=== PATIENT | male | born 1995 | race Hispanic/Latino ===

== ENCOUNTER 2018-03-08 20:07 | Inpatient (IN) | payer MEDICAID ==
--- NOTE | 2018-03-08 20:28 | C.PDOC ---
History Of Present Illness Patient transferred from [facility] for detox, accepted by Dr. Villanueva. States that he drinks 1.5L liquor per day, last drink yesterday. Also uses heroin, last use two days ago. Denies other illicit drug use. Denies SI/HI. Denies auditory or visual hallucinations. Time Seen by Provider: 03/08/18 20:16 Chief Complaint (Nursing): Medical Clearance Past Medical History Vital Signs: Last Vital Signs Temp 98.8 F 03/08/18 20:18 Pulse 101 H 03/08/18 20:12 Resp 20 03/08/18 20:12 BP 113/68 03/08/18 20:12 Pulse Ox 99 03/08/18 20:12 - Medical History PMH: No Chronic Diseases Family History: States: No Known Family Hx - Social History Hx Alcohol Use: Yes Hx Substance Use: Yes - Immunization History Hx Tetanus Toxoid Vaccination: Yes Hx Influenza Vaccination: No Hx Pneumococcal Vaccination: No Review Of Systems Except As Marked, All Systems Reviewed And Found Negative. Eyes: Negative for: Vision Change Cardiovascular: Negative for: Chest Pain, Palpitations Respiratory: Negative for: Shortness of Breath Gastrointestinal: Negative for: Nausea, Vomiting Neurological: Negative for: Confusion, Altered Mental Status Psych: Negative for: Suicidal ideation Physical Exam - Physical Exam Appears: Non-toxic Skin: Normal Color, Diaphoretic (mild) Head: Atraumatic Eye(s): bilateral: Normal Inspection Tongue: Normal Appearing Lips: Normal Appearing Chest: Symmetrical Cardiovascular: Rhythm Regular (tachycardic) Respiratory: Normal Breath Sounds Gastrointestinal/Abdominal: Normal Exam Extremity: Other (hand tremors) Neurological/Psych: Oriented x3, Normal Speech, Normal Motor, Normal Sensation Gait: Steady ED Course And Treatment O2 Sat by Pulse Oximetry: 99 Medical Decision Making Medical Decision Making: Patient admitted to Dr. Villanueva for detox Disposition - Disposition Disposition: HOSPITALIZED Disposition Time: 20:29 Condition: GOOD - Clinical Impression Clinical Impression: Alcohol abuse
--- NOTE | 2018-03-08 20:43 | PCM.BM ---
<Raul Angulo - Last Filed: 03/08/18 20:42> Treatment Plan Problems - Problems identified on initial assessmt potential for alcohol withdrawal Date Initiated: 03/08/18 Time Initiated: 20:42 Status: Active Treatment assets and liabiliti Patient Assests: ADL independent Patient Liabilities: substance abuse - Milieu Protocol Maintain good personal hygiene: daily Encourage regular showers, daily Remind patient to perform daily oral care, daily Assist patient to perform ADL's Conduct patient checks and document Observation sheet: Q15 minutes Maintain personal safety: every shift Educate patient to report safety concerns to staff, every shift Monitor environment for contraband/sharps Medication safety: Monitor for expected outcome, potential side effects: every shift, Assess barriers to learning: every shift, Assess readiness for medication education: every shift <Tiffanie Villanueva - Last Filed: 03/09/18 14:34> - Diagnosis (1) Opioid use disorder, severe, dependence Status: Acute Interventions: 03/09/18 14:33 * Assess 7x/week regarding severity of withdrawal * Educate regarding risks, benefits, side effects and alternatives of medica tions * Use Motivational Interviewing for abstinence * Use CBT for relapse prevention * Medication management for withdrawal symptoms * Encourage medication assisted treatment * (2) Alcohol use disorder, severe, dependence Status: Acute Interventions: 03/09/18 14:33 * Assess 7x/week regarding severity of withdrawal * Educate regarding risks, benefits, side effects and alternatives of medications * Use Motivational Interviewing for abstinence * Use CBT for relapse prevention * Medication management for withdrawal symptoms * Encourage medication assisted treatment *
--- NOTE | 2018-03-09 12:09 | PCM.PSYCH ---
Initial Psychiatric Evaluation - Initial Psychiatric Evaluation Type of Admission: Voluntary Legal Status: Capacity Chief Complaint (in patient's own words): "I need help!" History of Present Illness and Precipitating Events: He is seen, chart reviewed, and case discussed. He is a 23 year old male who is single with no children. He is currently homeless and used to work in [employer]. He is recently released from half-way as of last month. He is cooperative and visibly withdrawing. He began drinking alcohol at 13 years old but it became regular at 14 years old. He drinks 1 1/2 liter of vodka a day and last drank 2 days ago. He has had one seizure related to alcohol. He also uses opiates and began using at 16 years old. His opioid use has been regular ever since and snorts about a bundle a day. His opiates of choice are heroin, fentanyl and carfentanyl. He last used a bundle 2 days ago. He also takes Xanax but it is not daily. He smokes 1 pack of cigarettes a day. He has undergone detoxification once before at [facility] and has never been to a rehabilitation center. He has been hospitalized due to depression 3 times in the past. He is willing to enter a program after this detoxification. Pt denies suicidal or homicidal ideations. Pt has poor sleep, energy, appetite. Pt denies paranoia or auditory/visual halluc. Pt is tremulous, sweaty, nauseous, and anxious. Past Medical History: Denies Family History: Mother with depressive d/o, anxiety d/o and bipolar d/o unspecified Psychiatric History: Depressive d/o, anxiety d/o, bipolar d/o perhaps but he is not sure Surgical History: Left knee surgery Current Medications: Active Medications Generic Name Dose Route Start Last Admin Trade Name Freq PRN Reason Stop Dose Admin Chlordiazepoxide 25 mg 03/09/18 05:59 Librium PO Q4H PRN Alcohol Withdrawal Chlordiazepoxide 25 mg 03/09/18 06:00 03/09/18 11:37 Librium PO 03/13/18 05:59 25 mg Q6 VIRGILIO Administration Taper Clonidine HCl 0.1 mg 03/09/18 00:20 Catapres PO Q6 PRN withdrawal symptoms Gabapentin 300 mg 03/09/18 10:30 03/09/18 10:32 Neurontin PO 300 mg TID VIRGILIO Administration Hydroxyzine HCl 25 mg 03/09/18 00:21 Atarax PO Q6 PRN Anxiety Methadone HCl 25 mg 03/09/18 10:30 03/09/18 10:32 Methadone PO 03/15/18 10:29 25 mg Q24H VIRGILIO Administration Taper Nicotine 1 patch 03/09/18 11:30 03/09/18 11:37 Nicoderm Cq TD 1 patch DAILY VIRGILIO Administration Trazodone HCl 50 mg 03/09/18 00:22 Desyrel PO HS PRN Insomnia Past Psychiatric History - Past Psychiatric History Previous Treatment History: Intensive Outpatient Pertinent Medical Hx (Current Medical&Sleep Prob, Allergies): Allergies Allergy/AdvReac Type Severity Reaction Status Date / Time No Known Allergies Allergy Verified 03/08/18 20:17 No Known Home Med 03/08/18 Review of Systems - Psychiatric Psychiatric: Abnormal Sleep Pattern, Anhedonia, Anxiety, Behavioral Changes, Change in Appetite, Depression, Difficulty Concentrating, Irritability. absent: Hallucinations, Homicidal Ideation, Paranoia, Suicidal Ideation Mental Status Examination - Personal Presentation Personal Presentation: Looks stated age - Affect Affect: Constricted - Motor Activity Motor Activity: Calm - Reliability in Providing Information Reliability in Providing Information: Good - Speech Speech: Organized - Mood Mood: Depressed, Anxious - Formal Thought Process Formal Thought Process: No Impairment - Cognitive Functions Orientation: Person, Place, Situation, Time Sensorium: Alert Attention/Concentration: Easily distracted Estimate of Intelligence: Average Judgement: Intact, as evidence by: Insight regarding need for hospitalization Memory: Recent intact, as evidence by: Ability to recall events of the day, Remote intact, as evidenced by: Abilit to recall sig. 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 Attend groups and activities Supportive therapy and psychoeducation [place] for abstinence CBT for relapse prevention Encourage MAT Refer to rehab or IOP, and self-help groups Teach healthy lifestyle methods, i.e. diet, exercise, meditation Smoking cessation with [place] Nicotine patch if needed Repeat labs re liver, pancrease Protonix for stomach acid 34 min Projected ELOS: 5 days Prognosis: good w treatment - Smoking Cessation Smoking Cessation Initiated: Yes
[2018-03-09] MEDS: Pantoprazole 20 mg EC Tab PO SCH (14:57)
[2018-03-10 08:35] LABS: BASO # 0.1 K/uL (0.0-0.2); BASO % 0.7 % (0.0-2.0); EOS # 0.1 K/uL (0.0-0.7); EOS % 1.3 % (0.0-4.0); HEMOGLOBIN 12.6 g/dL (12.0-18.0); LYMPH # 2.3 K/uL (1.0-4.3); LYMPH % 28.3 % (20.0-40.0); MEAN CELL VOLUME 85.1 fL (80.0-94.0); MEAN CORPUSCULAR HEMOGLOBIN 28.1 pg (27.0-31.0); MONO # 0.7 K/uL (0.0-0.8); MONO % 8.5 % (0.0-10.0); NEUT # 4.9 K/uL (1.8-7.0); NEUT % 61.2 % (50.0-75.0); NRBC % 0.1 % (0.0-2.0); RBC 4.48 Mil/uL (4.40-5.90)
[2018-03-10 08:53] LABS: ALB/GLOB RATIO 1.3 (1.0-2.1); ALBUMIN 4.4 g/dL (3.5-5.0); ALT/SGPT 37 U/L (21-72); AMYLASE 162 U/L (30-110); AST/SGOT 27 U/L (17-59); BLOOD UREA NITROGEN 18 mg/dL (9-20); CALCIUM 9.3 mg/dl (8.6-10.4); GFR NON-AFRICAN AMERICAN > 60; LIPASE 454 U/L (23-300)
[2018-03-10] MEDS: Pantoprazole 20 mg EC Tab PO SCH (09:18)
[2018-03-10] MEDS ORDERED: Pantoprazole 20 mg EC Tab PO ONE (12:00)
--- NOTE | 2018-03-10 12:04 | PCM.PYCHPN ---
Psychiatric Progress Note - Psychiatric Progress Note Patient seen today, length of contact: 16 min Patient Chief Complaint: "I am still withdrawing" Problems Identified/Issues Discussed: The pt is seen, chart reviewed, case discussed with staff. The pt is compliant with medications and reports no side-effects. Symptoms are improving but needs more time to stabilize. Pt attends groups and activities. Support given, psycho-education provided. After care discussed. Medication Change: Yes (detox changes daily) Medical Record Reviewed: Yes Mental Status Examination - Cognitive Function Orientation: Person, Place, Situation, Time Memory: Intact Attention: WNL Concentration: Poor Association: WNL Fund of Knowledge: WNL - Mood Mood: Depressed, Anxious - Affect Affect: Constricted - Speech Speech: Appropriate - Formal Thought Process Formal Thought Process: No Impairment - Suicidal Ideation Suicidal Ideation: No - Homicidal Ideation Homicidal Ideation: No Goal/Treatment Plan - Goal/Treatment Plan Need for Continued Stay: Discharge may exacerbated symptoms, Severe functional impairment Progress Toward Problem(s) and Goals/Treatment Plan: Taper with methadone Gabapentin for augmentation Remeron for insomnia ad depression As needed medications All risks, benefits and alternatives of the meds discussed, and the pt agreed and understood. Attend groups and activities Supportive therapy and psychoeducation [place] for abstinence CBT for relapse prevention Encourage MAT Refer to rehab or IOP, and self-help groups Teach healthy lifestyle methods, i.e. diet, exercise, meditation Smoking cessation with [place] Nicotine patch if needed Repeat labs re liver, pancrease again Restricting diet discussed Protonix for stomach acid Estimated Date of D/C: 03/14/18
[2018-03-11] MEDS: Pantoprazole 40 mg EC Tab PO SCH (09:41)
[2018-03-11 11:57] LABS: AMYLASE 120 U/L (30-110); LIPASE 193 U/L (23-300)
[2018-03-11] MEDS: Bacitracin 500 Units/gm Oint Foilpak UD TOP SCH ×2 (13:32→17:10)
--- NOTE | 2018-03-11 15:35 | PCM.PYCHPN ---
Psychiatric Progress Note - Psychiatric Progress Note Patient seen today, length of contact: 17 min Patient Chief Complaint: "I am tremulous" Problems Identified/Issues Discussed: The pt is seen, chart reviewed, case discussed with staff. Support given, CBT and [facility] used briefly No new symptoms reported, improving slowly and needs more time Extra meds added due to ongoing wdw sx No SEs from medications, risks discussed. After care discussed Medication Change: Yes (detox changes daily) Medical Record Reviewed: Yes Mental Status Examination - Cognitive Function Orientation: Person, Place, Situation, Time Memory: Intact Attention: WNL Concentration: Poor Association: WNL Fund of Knowledge: WNL - Mood Mood: Depressed, Anxious - Affect Affect: Constricted - Speech Speech: Appropriate - Formal Thought Process Formal Thought Process: No Impairment - Suicidal Ideation Suicidal Ideation: No - Homicidal Ideation Homicidal Ideation: No Goal/Treatment Plan - Goal/Treatment Plan Need for Continued Stay: Discharge may exacerbated symptoms, Severe functional impairment Progress Toward Problem(s) and Goals/Treatment Plan: Taper with methadone Gabapentin for augmentation Remeron for insomnia ad depression As needed medications All risks, benefits and alternatives of the meds discussed, and the pt agreed and understood. Attend groups and activities Supportive therapy and psychoeducation [place] for abstinence CBT for relapse prevention Encourage MAT Refer to rehab or IOP, and self-help groups Teach healthy lifestyle methods, i.e. diet, exercise, meditation Smoking cessation with [place] Nicotine patch if needed Repeat labs re liver, pancrease again Restricting diet discussed Protonix for stomach acid Estimated Date of D/C: 03/14/18
[2018-03-11] MEDS ORDERED: Aluminum Hydroxide/Magnesium Hydroxide Susp (30 mL) PO PRN (15:39)
[2018-03-11] MEDS: Calcium Carbonate 500 mg Chewable Antacid Tab PO SCH (17:19)
[2018-03-11 20:52] VITALS: RESP 18
[2018-03-12] MEDS: Pantoprazole 40 mg EC Tab PO SCH (09:05)
[2018-03-12] MEDS: Bacitracin 500 Units/gm Oint Foilpak UD TOP SCH ×3 (09:05→17:24)
[2018-03-12] MEDS: Calcium Carbonate 500 mg Chewable Antacid Tab PO SCH ×2 (09:06→17:25)
--- NOTE | 2018-03-12 09:56 | PCM.PYCHPN ---
Psychiatric Progress Note - Psychiatric Progress Note Patient seen today, length of contact: 17 min Patient Chief Complaint: I need an extra dose of methadone Problems Identified/Issues Discussed: Patient seen and evaluated, chart reviewed and discussed with the nurse. He reports some improvement in his mood and irritability. He still reports withdrawal symptoms including camps, joint pains and nausea. He is requesting for an extra dose of methadone. He denies any AVH or any SI/HI. Patient is compliant with medications and denies any side effects. Symptoms are improving but need more time to stabilize. Support and psychoeducation given. Medication Change: Yes (detox changes daily) Medical Record Reviewed: Yes Mental Status Examination - Cognitive Function Orientation: Person, Place, Situation, Time Memory: Intact Attention: WNL Concentration: Poor Association: WNL Fund of Knowledge: WNL - Mood Mood: Depressed, Anxious - Affect Affect: Constricted - Speech Speech: Appropriate - Formal Thought Process Formal Thought Process: No Impairment - Suicidal Ideation Suicidal Ideation: No - Homicidal Ideation Homicidal Ideation: No Goal/Treatment Plan - Goal/Treatment Plan Need for Continued Stay: Discharge may exacerbated symptoms, Severe functional impairment Progress Toward Problem(s) and Goals/Treatment Plan: Opioid withdrawal Opioid use d/o, severe Alcohol withdrawal 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 Attend groups and activities Supportive therapy and psychoeducation [place] for abstinence CBT for relapse prevention Encourage MAT Refer to rehab or IOP, and self-help groups Teach healthy lifestyle methods, i.e. diet, exercise, meditation Smoking cessation with [place] Nicotine patch if needed Repeat labs re liver, pancrease Protonix for stomach acid Estimated Date of D/C: 03/14/18
[2018-03-13] MEDS: Bacitracin 500 Units/gm Oint Foilpak UD TOP SCH ×3 (09:27→17:13)
[2018-03-13] MEDS: Pantoprazole 40 mg EC Tab PO SCH (09:39)
[2018-03-13] MEDS: Calcium Carbonate 500 mg Chewable Antacid Tab PO SCH ×2 (09:39→17:14)
--- NOTE | 2018-03-14 08:41 | PCM.PYCHDC ---
Mental Status Examination - Mental Status Examination Orientation: Person, Place, Situation, Time Memory: Intact Mood: Anxious Affect: Constricted Speech: Appropriate Attention: WNL Concentration: WNL Association: WNL Fund of Knowledge: WNL Formal Thought Process: No Impairment Suicidal Ideation: No Current Homicidal Ideation?: No Discharge Summary - Discharge Note Reason for Hospitalization: Opioid and alcohol detox Consultations:: List each consultation separately and include: 1. Reason for request. 2. Findings. 3. Follow-up Summary of Hospital Course include:: 1. Description of specific treatment plan utilized for patients during their course of treatmen. 2. Summarize the time- course for resolution of acute symptoms and/or regressed behaviors. 3. Describe issues identified and worked on during hospitalization. 4. Describe medication utilized. 5. Describe medical problems identified and treated. 6. Reassessment of suicide risk Summary of Hospital Course: On admission: He is a 23 year old male who is single with no children. He is currently homeless and used to work in [employer] shop. He is recently released from custodial as of last month. He is cooperative and visibly withdrawing. He began drinking alcohol at 13 years old but it became regular at 14 years old. He drinks 1 1/2 liter of vodka a day and last drank 2 days ago. He has had one seizure related to alcohol. He also uses opiates and began using at 16 years old. His opioid use has been regular ever since and snorts about a bundle a day. His opiates of choice are heroin, fentanyl and carfentanyl. He last used a bundle 2 days ago. He also takes Xanax but it is not daily. He smokes 1 pack of cigarettes a day. He has undergone detoxification once before at [facility] and has never been to a rehabilitation center. He has been hospitalized due to depression 3 times in the past. He is willing to enter a program after this detoxification. Pt denies suicidal or homicidal ideations. Pt has poor sleep, energy, appetite. Pt denies paranoia or auditory/visual halluc. Pt is tremulous, sweaty, nauseous, and anxious. Past Medical History: Denies Family History: Mother with depressive d/o, anxiety d/o and bipolar d/o unspecified Psychiatric History: Depressive d/o, anxiety d/o, bipolar d/o perhaps but he is not sure Surgical History: Left knee surgery Hospital course: The pt was admitted and started on treatment with psychotherapy, support, psychoeducation and medications. NH and CBT used. The pt attended groups and activities, as well as milieu therapy. All the risks and benefits of medications are discussed and the patient understood and agreed. The pt improved with the treatments provided. After care discussed with the patient. He is seen, chart reviewed, and case discussed. The patient went to [facility] in [place]. 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 Follow after care plan as discussed. Use relapse prevention skills Return to ER or call 911 if suicidal, homicidal or symptoms relapse. Stay away from stress, alcohol and drugs. See primary doctor regularly and get labs. Prescriptions/Medication Reconciliation: Escitalopram [Lexapro] 10 mg PO DAILY #30 tab Gabapentin [Neurontin] 300 mg PO TID #90 cap Hydrocortisone 1% Cream [Cortizone 1% Cream] 1 % TOP BID #1 tube hydrOXYzine HCl [Atarax] 50 mg PO BID PRN #30 tab PRN Reason: Anxiety Mirtazapine [Remeron] 15 mg PO HS #30 tab Pantoprazole [Protonix EC Tab] 40 mg PO DAILY #30 ect Propranolol [Inderal] 20 mg PO BID #60 tab traZODone [Desyrel] 100 mg PO HS PRN #30 tab PRN Reason: Insomnia
[2018-03-14] MEDS: Pantoprazole 40 mg EC Tab PO SCH (09:13)
[2018-03-14] MEDS: Calcium Carbonate 500 mg Chewable Antacid Tab PO SCH (09:14)
[2018-03-14] MEDS: Bacitracin 500 Units/gm Oint Foilpak UD TOP SCH (09:14)
[2018-03-14 11:07] VITALS: BP 115/73; PULSE 90; TEMP 97.4; O2SAT 100
[2018-03-14] MEDS ORDERED: Hydrocortisone 1% Cream (30 GM) TOP SCH (18:00)
== END 2018-03-14 10:50 | disposition home or self-care (01) | DRG 772 ==
LOC: C.ER 20:07 → C.7D 20:25
PROVIDERS: ADMIT Psychiatry & Neurology Psychiatry; ATTEND Psychiatry & Neurology Psychiatry
PROC: HZ2ZZZZ Detoxification Services for Substance Abuse Treatment (ICD-10-PCS; principal; 2018-03-08)
PROC: HZ81ZZZ Medication Management for Substance Abuse Treatment, Methadone Maintenance (ICD-10-PCS; 2018-03-08)
PROC: GZ3ZZZZ Medication Management (ICD-10-PCS; 2018-03-08)
PROC: HZ80ZZZ Medication Management for Substance Abuse Treatment, Nicotine Replacement (ICD-10-PCS; 2018-03-08)
PROC: HZ46ZZZ Group Counseling for Substance Abuse Treatment, Psychoeducation (ICD-10-PCS; 2018-03-08)
PROC: HZ59ZZZ Individual Psychotherapy for Substance Abuse Treatment, Supportive (ICD-10-PCS; 2018-03-08)
DX: F11.23 Opioid dependence with withdrawal (principal); F33.1 Major depressive disorder, recurrent, moderate; F10.239 Alcohol dependence with withdrawal, unspecified; F10.24 Alcohol dependence with alcohol-induced mood disorder; F13.20 Sedative, hypnotic or anxiolytic dependence, uncomplicated; F17.210 Nicotine dependence, cigarettes, uncomplicated; F41.9 Anxiety disorder, unspecified; G47.00 Insomnia, unspecified; Z59.0 Homelessness; Z81.8 Family history of other mental and behavioral disorders; F31.9 Bipolar disorder, unspecified